=== PATIENT | female | born 1980 | race African-American/Black ===

== ENCOUNTER 2017-06-29 18:59 | Emergency (ER) | payer OTHER ==
[~2017-06-29] VITALS: Ht 149.9 cm; Wt 82.6 kg
[2017-06-29] MEDS ORDERED: IRON325 PO (19:32)
[2017-06-29] MEDS ORDERED: PRENATA CHEWAB1 EACH PO (19:32)
[2017-06-29 19:36] LABS: HEMATOCRIT 31.3 % (37.0-47.0); HEMOGLOBIN 10.4 gm/dL (12.0-15.0); MCH 27.3 pg (26.0-34.0); MCHC 33.3 g/dL (28.0-37.0); MCV 81.9 fL (80.0-100.0); RBC 3.82 mil/uL (4.20-5.00); RDW 13.4 % (10.5-14.5); WBC 12.3 thou/uL (4.0-11.0)
[2017-06-29 19:49] LABS: CREATININE 0.5 mg/dL (0.6-1.0); POTASSIUM 3.4 mmol/L (3.5-5.1)
[2017-06-29 20:58] VITALS: BP 109/61
== END 2017-06-29 20:58 | disposition short-term general hospital (02) ==
LOC: ER 18:59
PROVIDERS: Emergency Medicine
DX: O46.93 Antepartum hemorrhage, unspecified, third trimester (principal); O62.9 Abnormality of forces of labor, unspecified; Z3A.30 30 weeks gestation of pregnancy

== ENCOUNTER 2018-12-30 10:46 | Emergency (ER) | payer OTHER ==
[~2018-12-30] VITALS: Ht 149.9 cm; Wt 59.0 kg
[~2018-12-30 10:46] MED LIST: IRON325 PO; PRENATA CHEWAB1 EACH PO
[2018-12-30 11:29] LABS: URINE BILIRUBIN NEGATIVE (Negative); URINE BLOOD 2+ (Negative); URINE CLARITY CLEAR; URINE COLOR YELLOW; URINE GLUCOSE-RANDOM* NEGATIVE (Negative); URINE KETONES NEGATIVE (Negative); URINE LEUKOCYTES 2+ (Negative); URINE NITRITE NEGATIVE (Negative); URINE PROTEIN (DIPSTICK) TRACE (Negative); URINE SPECIFIC GRAVITY <= 1.005 (1.005-1.035); URINE UROBILINOGEN 0.2 E.U./dl (0.2-1.0)
[2018-12-30 11:35] LABS: CASTS None Seen /LPF (None Seen); CRYSTALS None Seen /LPF (None Seen); SQUAMOUS 4-10 Moderate /LPF (0-3)
[2018-12-30 11:36] LABS: BACTERIA None Seen /HPF (None Seen); URINE RBC 0-2 Rare /HPF (0-2); URINE WBC 6-15 Few /HPF (0-5)
[2018-12-30 11:52] LABS: HEMATOCRIT 33.1 % (37.0-47.0); HEMOGLOBIN 11.3 gm/dL (12.0-15.0); MCH 29.4 pg (26.0-34.0); MCHC 34.1 g/dL (28.0-37.0); PLATELET COUNT 375 thou/uL (150-400); RBC 3.85 mil/uL (4.20-5.00)
[2018-12-30 12:08] LABS: ALBUMIN 2.8 g/dL (3.4-5.0); CALCIUM 8.9 mg/dL (8.5-10.1); CREATININE 0.9 mg/dL (0.6-1.0); TOTAL BILIRUBIN 0.4 mg/dL (<0.1-1.0); TOTAL PROTEIN 7.3 g/dL (6.4-8.2)
[2018-12-30 12:13] LABS: POTASSIUM 2.6 mmol/L (3.5-5.1)
[2018-12-30 12:36] LABS: ABSOLUTE NEUTROPHILS 17.6 thou/uL (1.4-8.2)
--- NOTE | 2018-12-30 13:39 | EKG ---
[place] [address] [facility] [employer] [place] [address] ELECTROCARDIOGRAM REPORT Name: MAL ALSTON Room [facility]: [facility] [id number] ������������������ Admission: 12/30/18 ������������������ Attend Phys: Discharge: ������������������ Date of : 84 Report #: [id number] ����������������������������������������������������������������� [id number] THIS REPORT FOR: //name// [facility] ED Test Date: 2018-12-30 Test Time: 12:30:05 Pat Name: MAL ALSTON Department: Room: Gender: F [employer]: [facility] : 1980 Requested By: Emilie Dahl Order Number: [id number] MD: Rigo Farooq Measurements Intervals [place] Rate: 93 P: 27 ID: [id number] QRS: -6 QRSD: 101 T: 17 QT: 354 QTc: 441 Interpretive Statements Sinus rhythm Nonspecific T wave abnormality No previous ECG available for comparison Electronically Signed On 12-30-2018 13:39:31 CDT by Rigo Farooq [email or web address] ��������������������������������������������� <ELECTRONICALLY SIGNED> ���������������������������������������� By: Rigo Farooq MD, [facility] ��������������������������������������������� 12/30/18 1339 1230 1230 Rigo Farooq MD, FACC /EPI
[2018-12-30 13:48] LABS: HEMATOCRIT 29.5 % (37.0-47.0); MCH 29.6 pg (26.0-34.0); MCV 87.1 fL (80.0-100.0); PLATELET COUNT 325 thou/uL (150-400); RBC 3.38 mil/uL (4.20-5.00); RDW 12.8 % (10.5-14.5); WBC 17.4 thou/uL (4.0-11.0)
[2018-12-30 14:03] LABS: ALBUMIN 2.2 g/dL (3.4-5.0); CALCIUM 7.6 mg/dL (8.5-10.1); CREATININE 0.9 mg/dL (0.6-1.0); TOTAL BILIRUBIN 0.3 mg/dL (<0.1-1.0); TOTAL PROTEIN 5.9 g/dL (6.4-8.2)
[2018-12-30 14:09] LABS: POTASSIUM 2.4 mmol/L (3.5-5.1)
[2018-12-30] MEDS ORDERED: POTASSIUM20 PO (14:23)
[2018-12-30] MEDS ORDERED: COMPAZINE10 MG PO (14:24)
[2018-12-30 14:34] LABS: ABSOLUTE NEUTROPHILS 14.3 thou/uL (1.4-8.2)
[2018-12-30 14:52] VITALS: BP 122/72
== END 2018-12-30 15:02 | disposition home or self-care (01) ==
LOC: ER 10:46
PROVIDERS: Physician Assistant
DX: F07.81 Postconcussional syndrome (principal); S16.1XXA Strain of muscle, fascia and tendon at neck level, initial encounter; E86.0 Dehydration; E87.6 Hypokalemia; D72.829 Elevated white blood cell count, unspecified; R11.2 Nausea with vomiting, unspecified; Z98.890 Other specified postprocedural states; W10.9XXA Fall (on) (from) unspecified stairs and steps, initial encounter; Y93.89 Activity, other specified; Y92.89 Other specified places as the place of occurrence of the external cause; Y99.8 Other external cause status